=== PATIENT | female | born 1960 | race American Indian/Alaskan Native ===

== ENCOUNTER 2017-12-26 08:02 | Emergency (ER) | payer OTHER ==
[2017-12-26 08:02] VITALS: BMI 29.9
== END 2017-12-26 08:45 | disposition left against medical advice (07) ==
LOC: ED 08:02
DX: Z02.89 Encounter for other administrative examinations (principal); R50.9 Fever, unspecified

== ENCOUNTER 2018-09-03 11:25 | Outpatient (CLI) | payer OTHER | END 2018-09-03 11:26 | disposition home or self-care (01) | LOC: RAD 11:25 ==